=== PATIENT | male | born 1955 | race Caucasian/White ===

== ENCOUNTER 2019-11-16 06:32 | Inpatient (IN) ==
[2019-11-16] MEDS ORDERED: Albuterol 2.5 MG/3 ML NEBULIZER IH PRN ×2 (06:54→07:36)
[2019-11-16] MEDS ORDERED: Clindamycin 900 MG/50 ML 900 MG/50 ML IV.SOLN IVPB ONE (06:54)
[2019-11-16] MEDS ORDERED: Ringers Solution, Lactated 1,000 ML IVC SCH (07:00)
[2019-11-16] MEDS ORDERED: *HR* PHENYLEPHRINE 1,000 MCG/10 ML SYRINGE IVP ONE (07:06)
[2019-11-16] MEDS ORDERED: *HR* Propofol 200 MG/20 ML VIAL IVP ONE (07:17)
[2019-11-16] MEDS ORDERED: Dexamethasone 4 MG/ML VIAL ONE (07:17)
[2019-11-16] MEDS ORDERED: *HR* Rocuronium Bromide 50 MG/5 ML VIAL ONE (07:17)
[2019-11-16] MEDS ORDERED: Ondansetron 4 MG/2 ML VIAL ONE (07:17)
[2019-11-16] MEDS ORDERED: Lidocaine -MPF 2% 2 ML VIAL ONE (07:17)
[2019-11-16] MEDS ORDERED: *HR* FentaNYL (PF) 100 MCG/2 ML VIAL ONE ×2 (07:21→09:00)
[2019-11-16] MEDS ORDERED: *HR* Midazolam HCl 2 MG/2 ML VIAL ONE (07:21)
[2019-11-16] MEDS ORDERED: *HR* Labetalol 20 MG/4 ML SYRINGE IVP PRN (07:36)
[2019-11-16] MEDS ORDERED: Ondansetron 4 MG/2 ML VIAL IVP ONE (07:36)
[2019-11-16] MEDS ORDERED: *HR* HYDROmorphone (PF) 1 MG/ML SYRINGE IVP PRN (07:36)
[2019-11-16] MEDS ORDERED: *HR* OxyCODONE Immed Rel 5 MG TABLET PO PRN (07:36)
[2019-11-16] MEDS ORDERED: Gabapentin 300 MG CAPSULE PO ONE (07:36)
[2019-11-16] MEDS ORDERED: Acetaminophen IV 1,000 MG/100 ML INFUS..BTL IVPB ONE (07:36)
[2019-11-16] MEDS ORDERED: Famotidine 20 MG/2 ML VIAL IVP ONE (07:36)
[2019-11-16] MEDS ORDERED: *HR* Promethazine 25 MG/ML VIAL IVP PRN (07:36)
[2019-11-16] MEDS ORDERED: *HR* Succinylcholine 200 MG/10 ML VIAL IVP ONE (07:46)
[2019-11-16 08:14] LABS: Basophils % 0.3 %; Eosinophils # 0.1 K/mcL (0.0-0.6); Eosinophils % 1.2 %; Hematocrit 44.1 % (37.5-50.1); Hemoglobin 14.8 g/dL (12.9-16.9); Immature Granulocytes % 0.3 % (0-4); Lymphocytes % 34.1 %; Mean Corpuscular HGB Conc 33.6 g/dL (31.6-35.5); Mean Corpuscular Hemoglobin 30.6 pg (28.0-33.3); Mean Corpuscular Volume 91.1 fL (83.0-100.0); Mean Platelet Volume 8.9 fL (9.4-12.4); Monocytes # 0.6 K/mcL (0.0-1.3); Neutrophils # 3.2 K/mcL (1.6-8.9); Platelet Count 268 K/mcL (140-400); Red Blood Count 4.84 M/mcL (4.19-5.50); Segmented Neutrophils % 54.1 %
[2019-11-16 08:17] LABS: Alanine Aminotransferase 18 Units/L (7-52); Albumin/Globulin Ratio 1.4 (1.1-2.2); Alkaline Phosphatase 60 Units/L (34-104); Aspartate Amino Transferase 17 Units/L (13-39); BUN/Creatinine Ratio 17 (6-26); Bilirubin,Direct 0.1 mg/dL (0.0-0.2); Bilirubin,Indirect 0.4 mg/dL (0.0-1.0); Bilirubin,Total 0.5 mg/dL (0.3-1.0); Blood Urea Nitrogen 17 mg/dL (8-23); Calcium 9.3 mg/dL (8.6-10.3); Carbon Dioxide 25 mEq/L (23-29); Chloride 103 mEq/L (98-107); Globulin 2.9 g/dL (2.4-3.5); Glucose 110 mg/dL (70-105); Osmolality,Calculated 290 (280-300); Potassium 4.1 mEq/L (3.5-5.1); Sodium 139 mEq/L (136-145); Total Protein 6.9 g/dL (6.4-8.9); eGFR For African Americans > 60 (> 60); eGFR For Non-African Americans > 60 (> 60)
[2019-11-16 08:24] LABS: Activated Partial Thrombo Time 29.7 Seconds (26.0-36.0)
[2019-11-16] MEDS ORDERED: EPHEDrine 50 MG/ML VIAL ONE (08:31)
[2019-11-16] MEDS ORDERED: *HR* HYDROMORPHONE 2 MG/ML VIAL ONE (09:36)
[2019-11-16] MEDS ORDERED: Naloxone 0.4 MG/ML INJ IVP PRN (12:00)
[2019-11-16] MEDS: Ketorolac 15 MG/ML VIAL IVP SCH ×3 (12:47→23:50)
[2019-11-16] MEDS: 0.9 % Sodium Chloride 1,000 ML IVC SCH (12:48)
[2019-11-16] MEDS: Ipratropium/Albuterol Neb 3 ML IH SCH ×3 (14:23→20:26)
[2019-11-16] MEDS: Gabapentin 300 MG CAPSULE PO SCH ×2 (15:21→21:09)
[2019-11-16] MEDS: *HR* HYDROcodone/Acet 5/325 mg TABLET PO PRN (15:21)
[2019-11-16] MEDS: *HR* Heparin 5,000 UNIT/ML VIAL SQ SCH ×2 (15:22→21:10)
[2019-11-16] MEDS: Famotidine 20 MG TABLET PO SCH (21:09)
[2019-11-16] MEDS: Sennosides/Docusate Sodium TABLET PO SCH (21:10)
[2019-11-17] MEDS: Ipratropium/Albuterol Neb 3 ML IH SCH ×3 (00:13→07:36)
[2019-11-17] MEDS: 0.9 % Sodium Chloride 1,000 ML IVC SCH ×3 (02:16→17:36)
[2019-11-17] MEDS: *HR* HYDROcodone/Acet 5/325 mg TABLET PO PRN ×2 (03:17→14:01)
[2019-11-17] MEDS: *HR* Heparin 5,000 UNIT/ML VIAL SQ SCH ×3 (05:47→20:33)
[2019-11-17] MEDS: Ketorolac 15 MG/ML VIAL IVP SCH (05:47)
[2019-11-17 07:05] LABS: Hematocrit 36.9 % (37.5-50.1); Mean Corpuscular HGB Conc 33.6 g/dL (31.6-35.5); Mean Corpuscular Volume 92.3 fL (83.0-100.0); Mean Platelet Volume 9.2 fL (9.4-12.4); Platelet Count 244 K/mcL (140-400); Red Cell Distribution Width 13.1 % (11.5-14.5)
[2019-11-17 07:14] LABS: Hemoglobin 12.4 g/dL (12.9-16.9); White Blood Count 15.5 K/mcL (4.3-11.1)
[2019-11-17 07:22] LABS: % Iron Saturation 7 % (20-55); BUN/Creatinine Ratio 14 (6-26); Blood Urea Nitrogen 19 mg/dL (8-23); Calcium 8.6 mg/dL (8.6-10.3); Carbon Dioxide 22 mEq/L (23-29); Chloride 105 mEq/L (98-107); Glucose 195 mg/dL (70-105); Iron 23 mcg/dL (65-175); Magnesium 1.9 mg/dL (1.6-2.6); Osmolality,Calculated 294 (280-300); Sodium 138 mEq/L (136-145); Transferrin 232 mg/dL (203-362); eGFR For African Americans > 60 (> 60); eGFR For Non-African Americans 55 (> 60)
[2019-11-17] MEDS: Sennosides/Docusate Sodium TABLET PO SCH ×2 (08:39→20:32)
[2019-11-17] MEDS: Finasteride 5 MG TABLET PO SCH (08:40)
[2019-11-17] MEDS: Gabapentin 300 MG CAPSULE PO SCH ×3 (08:40→20:33)
[2019-11-17] MEDS: Famotidine 20 MG TABLET PO SCH ×2 (08:41→20:33)
[2019-11-17] MEDS ORDERED: Iron Sucrose Complex 400 MG in 0.9 % Sodium Chloride 250 ML IVPB ONE (08:58)
[2019-11-17] MEDS: Levalbuterol Neb 0.63 MG/3 ML IH SCH ×3 (11:00→21:09)
[2019-11-17] MEDS ORDERED: *HR* HYDROcodone/Acet 5/325 mg TABLET PO ONE (17:23)
[2019-11-17] MEDS: Melatonin 3 MG TABLET PO SCH (20:33)
[2019-11-17] MEDS: *HR* HYDROcodone/Acet 7.5/325 mg TABLET PO PRN (20:33)
[2019-11-18] MEDS: 0.9 % Sodium Chloride 1,000 ML IVC SCH (01:54)
[2019-11-18] MEDS: Levalbuterol Neb 0.63 MG/3 ML IH SCH ×4 (04:09→22:33)
[2019-11-18] MEDS: *HR* Heparin 5,000 UNIT/ML VIAL SQ SCH ×3 (05:32→21:06)
[2019-11-18] MEDS: *HR* HYDROcodone/Acet 7.5/325 mg TABLET PO PRN ×4 (05:36→23:08)
[2019-11-18 06:20] LABS: BUN/Creatinine Ratio 16 (6-26); Blood Urea Nitrogen 16 mg/dL (8-23); Calcium 8.7 mg/dL (8.6-10.3); Carbon Dioxide 25 mEq/L (23-29); Chloride 108 mEq/L (98-107); Glucose 104 mg/dL (70-105); Osmolality,Calculated 293 (280-300); Potassium 4.5 mEq/L (3.5-5.1); Sodium 141 mEq/L (136-145); eGFR For African Americans > 60 (> 60); eGFR For Non-African Americans > 60 (> 60)
[2019-11-18] MEDS: Sennosides/Docusate Sodium TABLET PO SCH ×2 (07:29→21:06)
[2019-11-18] MEDS: Finasteride 5 MG TABLET PO SCH (07:29)
[2019-11-18] MEDS: Famotidine 20 MG TABLET PO SCH ×2 (07:29→21:06)
[2019-11-18] MEDS: Gabapentin 300 MG CAPSULE PO SCH ×3 (07:30→21:06)
[2019-11-18] MEDS: Loratadine 10 MG TABLET PO SCH (14:06)
[2019-11-18] MEDS: Melatonin 3 MG TABLET PO SCH (21:06)
[2019-11-19] MEDS: Levalbuterol Neb 0.63 MG/3 ML IH SCH ×4 (03:36→22:21)
[2019-11-19] MEDS: *HR* Heparin 5,000 UNIT/ML VIAL SQ SCH ×3 (05:26→20:22)
[2019-11-19] MEDS: *HR* HYDROcodone/Acet 7.5/325 mg TABLET PO PRN ×4 (05:28→20:22)
[2019-11-19] MEDS: Loratadine 10 MG TABLET PO SCH (08:48)
[2019-11-19] MEDS: Famotidine 20 MG TABLET PO SCH ×2 (08:48→20:22)
[2019-11-19] MEDS: Sennosides/Docusate Sodium TABLET PO SCH ×2 (08:49→20:21)
[2019-11-19] MEDS: Gabapentin 300 MG CAPSULE PO SCH ×3 (08:49→20:22)
[2019-11-19] MEDS: Finasteride 5 MG TABLET PO SCH (08:49)
[2019-11-19] MEDS ORDERED: Iron Sucrose Complex 400 MG in 0.9 % Sodium Chloride 250 ML IVPB ONE (08:59)
[2019-11-19] MEDS ORDERED: Loratadine 10 MG TABLET PO SCH (13:28)
[2019-11-19] MEDS: Melatonin 3 MG TABLET PO SCH (20:22)
[2019-11-20] MEDS: Levalbuterol Neb 0.63 MG/3 ML IH SCH ×4 (03:52→21:53)
[2019-11-20] MEDS: *HR* Heparin 5,000 UNIT/ML VIAL SQ SCH ×3 (05:48→20:23)
[2019-11-20] MEDS: Finasteride 5 MG TABLET PO SCH (08:43)
[2019-11-20] MEDS: *HR* HYDROcodone/Acet 7.5/325 mg TABLET PO PRN ×3 (08:43→23:24)
[2019-11-20] MEDS: Famotidine 20 MG TABLET PO SCH ×2 (08:43→20:22)
[2019-11-20] MEDS: Gabapentin 300 MG CAPSULE PO SCH ×3 (08:44→20:23)
[2019-11-20] MEDS: Loratadine 10 MG TABLET PO SCH (08:44)
[2019-11-20] MEDS: Sennosides/Docusate Sodium TABLET PO SCH ×2 (08:44→20:23)
[2019-11-20] MEDS: Melatonin 3 MG TABLET PO SCH (20:23)
[2019-11-21] MEDS: Levalbuterol Neb 0.63 MG/3 ML IH SCH ×2 (04:10→10:34)
[2019-11-21] MEDS: *HR* Heparin 5,000 UNIT/ML VIAL SQ SCH (05:34)
[2019-11-21 07:08] VITALS: BP 148/86
[2019-11-21] MEDS: Finasteride 5 MG TABLET PO SCH (09:13)
[2019-11-21] MEDS: Loratadine 10 MG TABLET PO SCH (09:14)
[2019-11-21] MEDS: *HR* HYDROcodone/Acet 7.5/325 mg TABLET PO PRN (09:14)
[2019-11-21] MEDS: Sennosides/Docusate Sodium TABLET PO SCH (09:14)
[2019-11-21] MEDS: Famotidine 20 MG TABLET PO SCH (09:14)
[2019-11-21] MEDS: Gabapentin 300 MG CAPSULE PO SCH (09:14)
[2019-11-22] MEDS ORDERED: (Evolocumab [Repatha Sureclick] 140 MG) SQ SCH (12:00)
== END 2019-11-21 10:51 | disposition home or self-care (01) | DRG 163 ==
LOC: SAMDAY 06:32 → 2NNU 11:53
PROVIDERS: ADMIT Thoracic Surgery (Cardiothoracic Vascular Surgery); ATTEND Thoracic Surgery (Cardiothoracic Vascular Surgery)